=== PATIENT | male | born 1960 | race Caucasian/White ===

== ENCOUNTER 2023-07-05 15:26 | Day surgery (SDC) | payer OTHER ==
[2023-07-05] MEDS ORDERED: Depo-Medrol 40 MG/ML IM ONE (15:27)
[2023-07-05] MEDS ORDERED: XYLOCAINE-MPF 1% 5ML SDV IJ ONE (15:27)
[2023-07-05] MEDS ORDERED: BUPIVACAINE 0.5% VIAL IJ ONE (15:27)
--- NOTE | 2023-07-05 20:16 | XRAY ---
Indication: Right ankle injection. Intraoperative fluoroscopy provided for 11 seconds. Single frontal digital spot image submitted for interpretation demonstrates anterior needle tip projecting over the expected right ankle joint. Small amount of contrast injected for needle tip placement. Correlate with intraoperative findings/report. Incidental old lateral malleolus fracture with fixation hardware.
--- NOTE | 2023-07-06 12:03 | XRAY ---
11 seconds of fluoroscopy was used in surgery for a right intra-articular ankle injection.
== END 2023-07-05 17:54 | disposition home or self-care (01) ==
LOC: SDC-PAIN 15:26
PROVIDERS: ATTEND Psychiatry & Neurology Pain Medicine
DX: M19.011 Primary osteoarthritis, right shoulder (principal)
CPT/HCPCS: 20610; 73600; 77002; J1030; Q9966